=== PATIENT | female | born 1955 | race Caucasian/White ===

== ENCOUNTER 2023-04-01 15:19 | Emergency (ER) | payer MEDICARE, SELFPAY ==
--- NOTE | ~2023-04-01 | CT_ITS ---
EXAMINATION: CT facial & cervical spine wo DATE: 04/01/2023 18:02 INDICATION: Right face injury. Headache. TECHNIQUE: Computed tomography (CT) of the maxillofacial region and cervical spine was performed with out intravenous contrast. Automated exposure control and iterative reconstruction technique were empl oyed. The dose-length product was 141.94 mGy-cm. COMPARISON: None FINDINGS: MAXILLOFACIAL CT: There is a hematoma in right maxillary sinus. There is right cheek soft tissue swelling. There are fr actures of lateral wall of right orbit, anterior and posterolateral leblanc of right maxillary sinus, a nd right orbital floor. There is leftward deviation of the nasal septum. CERVICAL SPINE CT: There is mild scarring at the lung apices. There is kyphosis of cervical spine. There is 7 degrees le vocurvature of cervicothoracic spine. There is 2 mm retrolisthesis of C6 on C7. There is wire fixatio n of the posterior C1 ring and posterior elements of C2-C4. There is mild chronic anterior wedging of T1 vertebral body. There is severely decreased disc height at C5-C6 and C6-C7. The following disc le vels are specifically discussed: C2-C3: There is no uncovertebral joint hypertrophy. There is no facet joint hypertrophy. There is no neural foraminal stenosis. There is no central canal stenosis. C3-C4: There is no uncovertebral joint hypertrophy. There is no facet joint hypertrophy. There is no neural foraminal stenosis. There is no central canal stenosis. C4-C5: There is no uncovertebral joint osteoarthritis. There is no facet joint osteoarthritis. There is no neural foraminal stenosis. There is no central canal stenosis. C5-C6: There is severe bilateral uncovertebral joint osteoarthritis. There is severe right and mild l eft facet joint osteoarthritis. There is mild bilateral neural foraminal stenosis. There is mild cent ral canal stenosis. C6-C7: There is severe bilateral uncovertebral joint osteoarthritis. There is mild bilateral facet taj int osteoarthritis. There is moderate right and mild left neural foraminal stenosis. There is mild ce ntral canal stenosis. C7-T1: There is no uncovertebral joint osteoarthritis. There is severe right and severe facet joint o steoarthritis. There is no neural foraminal stenosis. There is no central canal stenosis. IMPRESSION: 1. Fractures of the right zygomaticomaxillary complex. 2. Posterior fusion procedure from C1 to C4. 3. Severe cervical spondylosis. Reviewed, dictated and finalized at location E.
--- NOTE | ~2023-04-01 | CT_ITS ---
EXAMINATION: CT brain wo con DATE: 04/01/2023 18:01 INDICATION: Headache. Head injury. Fall. TECHNIQUE: Computed tomography (CT) of the head was performed without intravenous contrast. The mA wa s adjusted according to patient size. Iterative reconstruction technique was employed. The dose-lengt h product was 605.33 mGy-cm. COMPARISON: None FINDINGS: There is no intracranial hemorrhage, acute infarction, or abnormal intracranial mass lesion . The ventricles are normal in size. The orbits are normal. The mastoid air cells are normal. There i s hematoma in right maxillary sinus. There is a fracture of the posterolateral wall of right maxillar y sinus. There is a fracture of lateral wall of right orbit. IMPRESSION: 1. Normal brain. 2. Fractures of right zygomaticomaxillary complex. Reviewed, dictated and finalized at location E.
[2023-04-01 15:21] VITALS: BP 130/58; PULSE 56; RESP 18; TEMP 36.6; O2SAT 100
[2023-04-01] MEDS: LIDOCAINE, EPINEPHRINE, TETRACAINE VISCOUS SOLN 3 ML TOPICAL (17:44)
[2023-04-01] MEDS: LIDOCAINE HCL 1% LOCAL INJ 10 ML VIAL 20 ML INFILTRATE (18:51)
--- NOTE | 2023-04-01 19:04 | ED.HEATRA ---
HPI - Head Injury General Chief complaint: Head Injury Stated complaint: head lac, fell Time Seen by Provider: 04/01/23 16:59 History of Present Illness HPI Narrative: This is a 67F who denies significant past medical history who presents to the emergency department after a fall. The patient states she was climbing concrete steps, when she missed a step, falling forward, striking her face on the step. She denies loss of consciousness. She complains of 5/10 right face pain but denies loss of vision, weakness/numbness, chest pain, shortness of breath, nausea or vomiting. She states she also struck her left knee but has only mild dull pain. Related Data Allergies Allergy/AdvReac Type Severity Reaction Status Date / Time Penicillins Allergy Mild Unknown Verified 04/01/23 15:20 Review of Systems Review of Systems: CONSTITUTIONAL: Denies fever, chills, or sweats. EYES: Denies visual changes, redness, or discharge. ENT: Right face pain Denies rhinorrhea, congestion, sore throat, or otalgia. CARDIOVASCULAR: Denies chest pain, palpitations, or edema. RESPIRATORY: Denies cough or dyspnea. GASTROINTESTINAL: Denies abdominal pain, nausea, vomiting, or diarrhea. SKIN: Laceration of the right eyebrow Denies rash or itching. MUSCULOSKELETAL: Left knee pain Denies back pain, or myalgia. NEUROLOGIC: Denies headache, numbness, dizziness, or weakness. PSYCHIATRIC: Denies anxiety or depression. PMFSH Past Medical History Medical History (Updated 04/02/23 @ 22:58 by Keshav Sauceda MD) No significant past medical history Surgical History Surgical History (Updated 04/02/23 @ 22:45 by Keshav Sauceda MD) No significant past surgical history Social History Social History (Updated 04/02/23 @ 22:45 by Keshav Sauceda MD) Smoking status: Never smoker Alcohol intake: never Substance use: never Exam Narrative: GENERAL: Well-developed, well-nourished, and in no acute distress. HEAD: Normocephalic, there is a 2cm laceration just below the right lateral eyebrow. There is no noted exposed muscle or protruding fat. A 1cm diameter area of ecchymosis is noted over the right zygomatic arch EYES: PERRLA and EOMI. ENT: A superficial abrasion is noted over the anterior nasal bridge. Dried epistaxis with no active bleed in the right nare. The left nare is clear, no septal hematoma, no rhinorrhea. Mucous membranes moist. Oropharynx without tonsillar hypertrophy exudate or other lesions. Bilateral TMs pearly christianson nonbulging NECK: Supple. No midline spine tenderness to palpation, no step-off or crepitus. No carotid bruits or JVD CHEST: Clear to auscultation. No respiratory distress. No wheezes rales or rhonchi HEART: Regular rate and rhythm. No murmur heard. Normal peripheral pulses. ABDOMEN: Soft, nontender, nondistended, normal active bowel sounds. EXTREMITIES: Mild tenderness to palpation over the left anterior knee. Normal range of motion. No edema. BACK: No midline spine tenderness to palpation, no step-off or crepitus. SKIN: Warm, dry, no rash. NEURO: Alert and oriented x3. Moving all 4 limbs purposefully. PSYCH: Normal mood and affect. Course Course Emergency Course: 19:30 - CT of the head not concerning for intracranial hemorrhage. CT of the face demonstrates a right tripod fracture. The patient politely declined imaging of the left knee. The patient's laceration was repaired (please see procedure note). The patient's tetanus vaccination was updated. I discussed the patient with [facility] Sales Manager, Dr. Almanzar who recommends no nose blowing, antibiotics, Afrin for nasal congestion and follow up in 1 week. I also discussed the patient with [facility] Plastic Surgeon , Dr. León, who recommends outpatient follow up in 1 week. I discussed these findings and recommendations with the patient. I discussed return and emergency precautions including signs/symptoms of intracranial hemorr
[2023-04-01] MEDS: TETANUS,DIPHTHERIA,AC PERTUSSIS ADULT (0.5 ML) BOOSTRIX IM (19:26)
[2023-04-01 19:50] VITALS: BP 128/70; PULSE 61; RESP 18; O2SAT 99
== END 2023-04-01 19:52 | disposition home or self-care (01) ==
PROVIDERS: Emergency Provider Preventive Medicine Aerospace Medicine
DX: S02.40CA Maxillary fracture, right side, initial encounter for closed fracture (principal); S02.31XA Fracture of orbital floor, right side, initial encounter for closed fracture; S02.841A Fracture of lateral orbital wall, right side, initial encounter for closed fracture; S01.111A Laceration without foreign body of right eyelid and periocular area, initial encounter; Z23 Encounter for immunization; M47.812 Spondylosis without myelopathy or radiculopathy, cervical region; Z98.1 Arthrodesis status; W10.9XXA Fall (on) (from) unspecified stairs and steps, initial encounter
CPT/HCPCS: 12011; 70450; 70486; 72125; 90471; 90715; 99284

== ENCOUNTER 2025-01-22 09:50 | Emergency (ER) | payer MEDICARE, SELFPAY ==
--- NOTE | ~2025-01-22 | XR_ITS ---
XR wrist RT min 3V 01/22/2025 10:38 Indication: Left wrist pain Procedure: 4 views left wrist Comparison: No prior studies for comparison. Findings: There is an age-indeterminate fracture dorsal cortex of the radius distally seen on the obl ique view.. Correlate for point tenderness no other fracture is seen. Impression: 1: Age-indeterminate fracture dorsal cortex of the radius distally seen on oblique and lateral views. Correlate for point tenderness. Reviewed, dictated and finalized at location B. Impression: 1: Age-indeterminate fracture dorsal cortex of the radius distally seen on obli que and lateral views. Correlate for point tenderness.
[2025-01-22 10:03] VITALS: BP 124/85; PULSE 65; RESP 16; TEMP 36.4; O2SAT 100
--- NOTE | 2025-01-22 10:09 | ED.UPPEXIN ---
HPI - Extremity Injury (Upper) General Chief Complaint: Extremity Injury, Upper <Tianna Feliciano APRN - Last Filed: 01/22/25 11:14> Stated Complaint: right arm fracture, needs new splint <Tianna Feliciano APRN - Last Filed: 01/22/25 11:14> Time Seen by Provider: 01/22/25 10:00 <Tianna Feliciano APRN - Last Filed: 01/22/25 11:14> History of Present Illness HPI narrative: Patient is a 69-year-old female who presents to the ER with complaints right wrist pain. She reports she fell backward last week with her arm outstretched. Patient reports she went to [facility] where they diagnosed her with a broken wrist. She reports she called the orthopedic surgeon they advised her to follow-up and they called her back today reporting they do not take her insurance. Patient her OCL cast on. She endorses pain when she puts pressure on the site. Patient endorses a history of ?blindness, and prediabetes. <Tianna Feliciano APRN - Last Filed: 01/22/25 11:14> Related Data Allergies/Adverse Reactions: Allergies Allergy/AdvReac Type Severity Reaction Status Date / Time Penicillins Allergy Mild Unknown Verified 01/22/25 10:20 <Tianna Feliciano APRN - Last Filed: 01/22/25 11:14> Review of Systems Review of Systems: All systems reviewed & are unremarkable except as noted in HPI and below <Tianna Feliciano APRN - Last Filed: 01/22/25 11:14> [facility] Past Medical History Medical History: Medical History No significant past medical history <Tianna Feliciano APRN - Last Filed: 01/22/25 11:14> Surgical History Surgical History: Surgical History No significant past surgical history <Tianna Feliciano APRN - Last Filed: 01/22/25 11:14> Social History Social History: Social History Smoking status: Never smoker Alcohol intake: never Substance use: never <Tianna Feliciano APRN - Last Filed: 01/22/25 11:14> Exam Narrative: GENERAL: Well appearing, well-nourished, non-toxic, in no acute distress. HEAD: Normocephalic, atraumatic. NECK: Supple. No adenopathy, no masses. RESPIRATORY: Airway patent, respirations nonlabored. Clear to auscultation bilaterally, no rales, rhonchi, wheezing. CARDIOVASCULAR: Regular rate and rhythm without murmurs, rubs, or gallops. Peripheral pulses 2+ and equal bilaterally. ABDOMINAL: Soft, nontender, nondistended, no hepatosplenomegaly. Normoactive BS. MUSCULOSKELETAL: Moves all extremities. Strength/ROM intact without gross deformities. Unable to visualize right wrist due to 0CL to site. +CWMS SKIN: Warm, dry, normal color. No rashes. NEURO: A&O X3. Speech clear. Cranial nerves II-XII intact. No ataxic movements. PSYCHIATRIC: Appropriate mood and affect. Normal interaction. <Tianna Feliciano APRN - Last Filed: 01/22/25 11:14> Course LIBRARY SCIENCE PROFESSOR/PA Physician Supervision For this patient encounter, I reviewed the LIBRARY SCIENCE PROFESSOR or PA documentation, treatment plan, and medical decision making; and I had [id number] time with this patient. <Griffin Oro MD - Last Filed: 01/22/25 18:51> Vital Signs Vital signs: Vital Signs Temperature 97.6 F 01/22/25 10:03 Pulse Rate 65 01/22/25 10:03 Respiratory Rate 16 01/22/25 10:03 Blood Pressure 124/85 01/22/25 10:03 Pulse Oximetry 100 01/22/25 10:03 Oxygen Delivery Room Air 01/22/25 10:03 Temperature 97.5 F L 01/22/25 11:58 Pulse Rate 59 L 01/22/25 11:58 Respiratory Rate 16 01/22/25 11:58 Blood Pressure 112/58 L 01/22/25 11:58 Pulse Oximetry 100 01/22/25 11:58 Oxygen Delivery Room Air 01/22/25 10:16 <Tianna Feliciano APRN - Last Filed: 01/22/25 11:14> Vital Signs Temperature 97.6 F 01/22/25 10:03 Pulse Rate 65 01/22/25 10:03 Respiratory Rate 16 01/22/25 10:03 Blood Pressure 124/85 01/22/25 10:03 Pulse Oximetry 100 01/22/25 10:03 Oxygen Delivery Room Air 01/22/25 10:03 Temperature 97.5 F L 01/22/25 11:58 Pulse Rate 59 L 01/22/25 11:58 Respiratory Rate 16 01/22/25 11:58 Blood Pressure 112/58 L 01/22/25 11:58 Pulse Oximetry 100 01/22/25 11:58 Oxygen Delivery Room Air 01/22/25 10:16 <Griffin Oro MD - Last Filed: 01/22/25 18:51> MDM - Extremity Injury (Upper) MDM Narrative Medical decision making narrative: Patient is a 69-year-old female who presents to the ER with complaints right wrist pain. She reports she fell backward last week with her arm outstretched. Patient reports she went to [facility] where they diagnosed her with a broken wrist. She reports she called the orthopedic surgeon they advised her to follow-up and they called her back today reporting they do not take her insurance. Patient her OCL cast on. She endorses pain when she puts pressure on the site. Patient endorses a history of ?blindness, and prediabetes. Labs Ordered: None necessary Imaging Ordered: Right wrist x-ray Medications Ordered: Patient declined Results: Patient's right wrist x-ray indicates : Age-indeterminate fracture dorsal cortex of the radius distally seen on oblique and lateral views. Correlate for point tenderness. Diagnosis: Right wrist fracture Consults: orthopedics, Dr. Boles (outpatient) Patient Education/Shared MDM: Results of imaging shared with patient. She continues to decline the need for pain medication here in the ER. Patient strongly advised to follow-up with Orthopedic surgery as soon as possible. She will be discharged home with a prescription for Hensel and ibuprofen. Strict return precautions provided. Patient verbalized understanding and is in agreement with plan. Vital signs stable at time of discharge. All questions answered. <Tianna Feliciano APRN - Last Filed: 01/22/25 11:14> Differential Diagnosis Differential diagnosis: Likely sprain and strain of wrist, fracture of wrist and Colles' fracture <iTanna Feliciano APRN - Last Filed: 01/22/25 11:14> Imaging Data Attestation: I personally reviewed and interpreted this imaging study as follows: <Tianna Feliciano APRN - Last Filed: 01/22/25 11:14> Radiologist's impression: Impressions Wrist X-Ray 01/22/25 10:44 Impression: 1: Age-indeterminate fracture dorsal cortex of the radius distally seen on oblique and lateral views. Correlate for point tenderness. <Tianna Feliciano APRN - Last Filed: 01/22/25 11:14> Discharge Plan Discharge Clinical Impression: Fracture of wrist, Right wrist pain <Tianna Feliciano APRN - Last Filed: 01/22/25 11:14> Patient Disposition: Home <Tianna Feliciano APRN - Last Filed: 01/22/25 11:14> Condition: Stable <Tianna Feliciano APRN - Last Filed: 01/22/25 11:14> Instructions: Antibiotic Form, Wrist Fracture in Adults (ED) <Tianna Feliciano APRN - Last Filed: 01/22/25 11:14> Additional Instructions: Please return to the ER with any worsening symptoms. Follow-up with Orthopedic surgery as soon as possible. Take all medications as prescribed, including regularly scheduled medications. <Tianna Feliciano APRN - Last Filed: 01/22/25 11:14> Patient Language: Lithuanian <Tianna Feliciano APRN - Last Filed: 01/22/25 11:14> Prescriptions: New ibuprofen 800 mg tablet 800 mg PO TID PRN (Reason: pain) Qty: 60 0RF No Action oxycodone-acetaminophen [Endocet] 5-325 mg tablet 1 tablet PO Q12H PRN (Reason: pain, severe) Qty: 12 0RF cephalexin 500 mg capsule 500 mg PO Q12H Qty: 14 0RF Afrin (oxymetazoline) 0.05 % mist 2 spray intranasal Q12H PRN (Reason: nasal congestion) 3 Days Qty: 15 0RF <Tianna Feliciano APRN - Last Filed: 01/22/25 11:14> Follow-up/Referrals: Cade Boles MD [Physician] - (orthopedic surgery) PHYSICIAN NOT ON STAFF,NONSTAFF [Non-Staff] - <Tianna Feliciano APRN - Last Filed: 01/22/25 11:14> Time of Disposition: 11:11 <Tianna Feliciano APRN - Last Filed: 01/22/25 11:14> 11:11 <Griffin Oro MD - Last Filed: 01/22/25 18:51>
[2025-01-22 10:16] VITALS: BP 96/64; PULSE 62; RESP 16; TEMP 36.4; O2SAT 100
--- OUTSIDE RECORDS SUMMARY | 2025-01-22 10:38 | XMS_ITS | Data Portability ---
Author Organization [employer], [facility] Address [address] [address] Care Team Providers Care Pot Lining Supervisor Name Role Phone SALAS FRANCISCO Crossbar Switch Adjuster Unavailable Assessment No assessment recorded. Plan of Treatment Reminders Order Date Submit Date Provider Last Modified By Organization Details Last Modified Time Details Appointments None record ed. Lab None record ed. Referral None record ed. Procedures None record ed. Surgeries None record ed. Imaging None record ed. Medication Orders None record ed. Patient TargetsNo targets recorded. Patient InstructionsNo instructions recorded. Reason for Referral None Reported. Problems No Known Problems Procedures Surgical History Date Name Laterality Status Provider Name and Address Organization Details Recorded Time Spinal Surgery completed [facility] 02/06/2019 16:33:29 Imaging Results None recorded. Procedure Notes None recorded. Medical Equipment None Reported. Allergies Allergen ID Allergen Name Allergen Category Reaction Reaction Severity Criticality Documentation Date Start Date Code Code System Note Provider Name and Address Organization Details Recorded Time 84447 Product containin g penicilli n (product) medicatio n Not available Not available Not available 02/06/2019 49216 8001 SNOMED [employer] 9 16:31:35 Medications Name Sig Start Date Stop Date Status Note LastModified by Organization Details LastModified Time amitriptyline 10 mg tablet Take 1 tablet every day by oral route at bedtime . 04/06 completed Not Available Not Available Not Available Vitals Date Recorded Body height Body mass index (BMI) Body weight Heart rate Systolic And Diastolic Provider Name and Address Organization Details Last Updated DateTime 07/20/2019 162.56 cm 20.6 kg/m2 11539.08 g 70 /min 124/64 mm[Hg] Nora Campos [facility], [employer] 0 12:20:22 Date Recorded Body height Body mass index (BMI) Body weight Heart rate Systolic And Diastolic Provider Name and Address Organization Details Last Updated DateTime 03/06/2019 162.56 cm 20.6 kg/m2 34295.08 g 66 /min 131/76 mm[Hg] Nora Campos [facility] [employer] 9 16:19:57 Date Recorded Body height Body mass index (BMI) Body weight Heart rate Systolic And Diastolic Provider Name and Address Organization Details Last Updated DateTime 04/06/2019 162.56 cm 20.6 kg/m2 47342.08 g 83 /min 126/74 mm[Hg] Toyin Greer [facility], [employer] 04/06/2019 16:26:21 Date Recorded Body height Body mass index (BMI) Body weight Heart rate Systolic And Diastolic Provider Name and Address Organization Details Last Updated DateTime 05/05/2019 162.56 cm 20.6 kg/m2 43315.08 g 67 /min 121/71 mm[Hg] Nora Campos [facility], [employer] 9 11:38:20 Date Recorded Body height Body mass index (BMI) Body weight Systolic And Diastolic Provider Name and Address Organization Details Last Updated DateTime 06/02/2019 162.56 cm 20.6 kg/m2 62638.08 g 120/81 mm[Hg] Krysten Diaz [facility], [employer] 06/02/2019 13:03:23 Social History Question Answer Notes LastModified by Organizat ion Details LastModified Time Tobacco Smoking Status Never Smoker [facility] [employer] 02/06/2019 16:32:21 Auto Related Injury? No Information not available 02/06/2019 Who Is Your Employer? [employer] Information not available 02/06/2019 Marital Status [email or web address] Informati on not available 02/06/2019 How Many Children Do You Have? 1 Information not available 02/06/2019 What Types Of Sporting Activities Do You Participate In? Walking Dogs Information not available 02/06/2019 Work Related Injury? Yes Information not available 02/06/2019 Sex: Unknown Functional Status Question Answer Note LastModified by Organizat ion Details LastModified Time What is your level of alcohol consumption? None Information not available 02/06/2019 Are you currently employed? 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 [employer] Information not available 02/06/2019 What is your exercise level? Occasional Information not available 02/06/2019 Mental Status None recorded. Family History Relationship Description Onset Age of this Age Resolved Age Notes LastModified by Organization Details LastModified Time Unspecified Relation Rheumatoid arthritis Not available 01/26 16:31:53 Unspecified Relation Hypothyroidi sm Not available 01/26 16:32:01 Medical History Condition Response HIV or AIDS N Coronary Artery Disease N Gout N Kidney Stones N Hyperthyroidism N Hernia N Head Trauma/Injury Y Hypothyroidism Y Lung Disease N Blood Clots N COPD N Depression N Pacemaker N Anxiety Disorder Y Arthritis N Cancer N Stroke N Leg or Foot Ulcers N Neck Injury N High Cholesterol N Liver Disease N Rheumatoid Arthritis N Fibromyalgia N Headaches N Kidney Disease N Heart Problems N Migraines N Thyroid Problems N Anemia N Multiple Sclerosis N Tendon Tear N Ulcers N Heart Attack (AL) N Diabetes N Bleeding Disorder N Seizures/Epilepsy N Tuberculosis N Urinary Tract Infection N Back Problems N Diverticulitis N Asthma N Lupus N Peripheral Vascular Disease N Sleep Disorder N GERD/Reflux N Hepatitis N Aneurysm N Heart Disease N Pulmonary Embolism N Hypertension N Osteoporosis N Gynecological HistoryNo gynecological history recorded. Obstetrics History GPAL:G 0 P 0 0 0 0 Past Encounters Encounter ID Performer Location Encounter Start Date Encounter Closed Date Diagnosis/Indication Diagnosis SNOMED-CT Code Diagnosis ICD10 Code Diagnosis Note [id number] Avinash Sparks DO [facility] [address] [facility] [address] [place] [address] 02/06/2019 14:31:19 02/28/2019 11:49:04 Headache 52571612 R51 Concussion with no loss of consciousness [id number] S06.0X0A I discussed with the patient and I do feel that she did sustain a mild concussion with this injury as well.I believe the headache component as well as the light and noise sensitivit y are related to this and the balance and mild visual impairment .Based on the several go ahead and have her work with outpatient physical therapy on this at this time.Addit ionally also her on amitriptyl ine 10 mg daily at bedtime.If patient has the anxiety symptoms as well as some of the posttrauma tic stress symptoms that are not improving over time I would recommend her to be seen by outpatient psychology as well.[facility] we will hold off on this for now as talking to the patient she does feel that this is improving. 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 Anxiety [id number] F41.9 [id number] Avinash Sparks, DO [facility] [address] [place] [address] 03/06/2019 15:52:29 03/08/2019 09:30:31 Concussion with no loss of consciousness [id number] S06.0X0D I discussed with the patient today and we will go ahead and have her spanish moss picker the medication from the pharmacy and start this at this time.I will continue the physical therapy as she is making improvemen t.Patient' s subjective symptoms are improved but she still feels significan t cognitive change.I will go ahead and order a psychiatri c evaluation to be performed however we may not end up needing this if she makes rapid improvemen t this could be canceled at a later time.I do anticipate her continuing to improve.I will go ahead and have her return to work with no client direct supervisio n.I did fill out a work status stating the above.I did spend over 25 minutes with the patient today with more than 50% of the time in counseling and coordinati on of care regarding the above. [id number] Avinash Sparks DO [facility] [address] [place] [address] 04/06/2019 15:52:30 04/10/2019 10:38:04 Concussion with no loss of consciousness 51193913 S06.0X0D I discussed with the patient and we will continue the physical therapy as long as she is making goals.I will also have her no longer taking any additional medication s.We will continue her current work restrictio ns for now but I do anticipate that as she continues to improve we will be able to return her to her regular work duties and I anticipate that occurring by the time I see her next.I did fill out a work status with the current restrictio ns today.I will see her in approximat basia 4 weeks to reevaluate . Headache [id number] R51 [id number] Avinash Sparks, DO [facility] [address] [facility] [place] [address] 05/05/2019 11:25:29 05/10/2019 11:44:28 Concussion with no loss of consciousness [id number] S06.0X0D I discussed with the patient and we will go ahead and have her return to regular work duties.I will not make any additional changes at this time.If she is doing well in one month we will be placing her at [facility].If she has additional questions or concerns she is encouraged to contact me. [id number] Avinash Sparks, DO [facility] [address] [place] [address] 06/02/2019 12:51:45 06/05/2019 11:14:20 Concussion with no loss of consciousness [id number] S06.0X0D I discussed with the patient and we will not make any major changes at this time.I will not add back any medicine and we will not add any therapy at this time.It does sound as though all of her symptoms have improved significan tly and as she is getting back to full work duties this has slightly exacerbate d her symptoms but she is improving as she does more of this.She is in agreement with this plan and therefore we will continue her regular work duties and I did fill out a work status today.We will plan to see her back in approximat basia 6 weeks at which time I anticipate her being placed at [facility].She will contact me if she has any additional problems or concerns in the interim. [id number] Avinash Sparks, DO [facility] [address] [place] [address] 07/20/2019 12:05:28 07/26/2019 10:18:51 Concussion with no loss of consciousness [id number] S06.0X0D I discussed with the patient today and at this point we will go ahead and release her for full work duties at [facility] t.Patient expresses understand ing of this.I do not anticipate additional treatment being necessary for this patient at this time. Health Concerns Section Related Observation LastModified by Organization Detai ls LastModified Time None Recorded Concern Status LastModified by Organization Details LastModified Time None Recorded Advance Directives Directive None Recorded Payers Insurance Date Sequence Insurance Name Policy Number Policy Gaffney Covered Member ID Gaffney Member ID Guarantor Name 07/13/2019 1 *SELF PAY* [facility] [place] 01/25/2019 KRAUSE PREMIER [facility] [place] [facility] Episode No OBEpisode recorded.
--- OUTSIDE RECORDS SUMMARY | 2025-01-22 10:38 | XMS_ITS | Clinical Summary ---
Author Organization [facility] Address [address] [facility] [address] [place] [address] Care Team Providers Care Pedal Assembler Name Role Phone Unavailable Primary Care Provider Unavailabl e Source Comments [facility],non-owned Affiliates and Associated Physician Practices is amultiple site organization consisting of ambulatory clinics and hospital sitesin [place], [place], [place] and [place]. This disclosure is being madepursuant to the Care Everywhere program and may not contain all information available regarding this patient. Last updated 18.[facility] [employer] Social History Tobacco Use Types Packs/Day Years Used Date Smoking Tobacco: Never Assessed Comments Unknown Sex and Gender Information Value Date Recorded Sex Assigned at Not on file Legal Sex Female 6:30 AM [employer] Gender Identity Not on file Sexual Orientation Not on file Plan of Treatment Health Maintenance Due Date Last Done Comments BONE DENSITY TESTING 1955 COLOGUARD (AGES 45-75) - COL ON CA SCREENING 1955 COLON MONITORING 1953 COLONOSCOPY - COLON CA SCREENING 1953 CT COLONOGRAPHY - COLON CA SCREENING 1955 Colorectal Cancer Screening 1955 FIT - COLON CA SCREENING 1953 FLEX SIG - COLON CA SCREENING 1953 LIPID TESTING 1953 MAMMOGRAM 1953 HEPATITIS C SCREENING 12/07/1971 DTAP/TDAP/TD VACCINES (1 - Tdap) 1972 PNEUMOCOCCAL VACCINE 50+ (1 of 1 - PCV) 12/12/2003 ZOSTER VACCINE (1 of 2) 12/12/2003 COVID-19 VACCINE ( - 2023-2 5 season) 2024 DEPRESSION SCREENING 06/28/2024 INFLUENZA VACCINE (#1) 2025 Respiratory Syncytial Virus (RSV) Vaccine Pt: or over 60 yrs (1 - 1-dose 75+ series) 2028 HEPATITIS B VACCINE Aged Out No longe r eligible based on patient's age to complete this topic HIB VACCINE Aged Out No longer eligi ble based on patient's age to complete this topic HPV VACCINE Aged Out No longer eligi ble based on patient's age to complete this topic MENINGOCOCCAL (Group B) VACC INE SHARED DECISION-MAKING Aged Out No longer eligibl e based on patient's age to complete this topic MENINGOCOCCAL GROUPS A/C/Y/W VACCINE Aged Out No longer eligible b ased on patient's age to complete this topic
--- OUTSIDE RECORDS SUMMARY | 2025-01-22 10:39 | XMS_ITS | Data Portability ---
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 [address], [place], [address], [facility] [employer] [facility] [employer] [facility] 01/11/2024 15:08:43 Influenza, high-dose, trivalent, PF 4 completed Sandee Hickman APRN [address], [place], [address], [facility] [employer] [facility] [employer] [facility] 04/13/2024 11:49:27 Past Encounters Encounter ID Performer Location Encounter Start Date Encounter Closed Date Diagnosis/Indication Diagnosis SNOMED-CT Code Diagnosis ICD10 Code Diagnosis Note [id number] Gabi hernandez MD [facility] [place] [facility] [address] [place] [address] 01/11/2024 14:38:50 01/11/2024 15:33:31 Screening for disorder 377859715 Z13.9 Hyperlipidemia 79430621 E78.5 Vitamin D deficiency 347 30438 E55.9 Essential hypertension 41343305 I10 Screening mammography 24 071185 Z12.31 Screening for osteoporosis 453590311 Z13.885 [id number] Gabi hernandez MD [facility] [place] [facility] [address] [place] [address] 04/13/2024 11:00:05 04/13/2024 11:50:42 Adult health examination 765120295 Z00.00 Screening for disorder 191660769 Z13.9 Screening for malignant neoplasm of colon 203233646 Z12.11 Screening mammography 24 939246 Z12.31 Screening for osteoporosis 358771815 Z13.820 Z78.0 Administra tion of influenza vaccine 64485605 Z23 Advance care planning 71 5928429 Z71.89 Discussed advanced care planning due to age. [id number] Gabi hernandez MD [facility] [address] [address] 10/24/2024 09:40:52 10/24/2024 10:22:09 Screening - NAD 475935077 Z13.9 C-scope: Cologuard: Neg 05/21/2024 Mammogram: Get this if not done DEXA: Get this WWE: Do this if not done Get yearly flu shot, get tdap if not doneCan do shingrix vaccineCan do COVID 19 boosterCan do Prevnar #20 and RSV vaccine RTC in 6 months as per her wishes, advised to be compliant with taking her medication s, do labs, ER if worse, she did verbalize her understand ing of the above Hyperlipidemia 22466352 E78.5 On atorvastat in 10mg dailyGet labs Essential hypertension 20520794 I10 Not on any medication sGet labs Vitamin D deficiency 347 07695 E55.9 Serum eliza min B12 below reference range 744480200 R79.89 Hypothyroidism 52160552 E03.9 On levothyrox ine 50mcgs dailyGet US thyroid Postmenopausal state 764 94919 Z78.0 Bilateral cataracts 9572 2003 H26.9 Is to get surgeryNot yet arranged, sees Song visionNeed s to do labs Screening mammography 24 458332 Z12.31 Gynecologi c examination 40253368 Z01.419 Health Concerns Section Related Observation LastModified by Organization Detai ls LastModified Time None Recorded Concern Status LastModified by Organization Details LastModified Time None Recorded Advance Directives Directive N: Payers Insurance Date Sequence Insurance Name Policy Number Policy Gaffney Covered Member ID Gaffney Member ID Guarantor Name 10/24/2024 1 [employer] - PRIME (MEDICARE REPLACEMENT/ ADVANTAGE - HMO) [id number] Izabela Bell [id number] Izabela Bell OBGyn Episode No OBEpisode recorded.
[2025-01-22 11:58] VITALS: BP 112/58; PULSE 59; RESP 16; TEMP 36.4; O2SAT 100
== END 2025-01-22 12:03 | disposition home or self-care (01) ==
PROVIDERS: Emergency Provider Registered Nurse; PCP Internal Medicine
DX: S52.501A Unspecified fracture of the lower end of right radius, initial encounter for closed fracture (principal); W01.0XXA Fall on same level from slipping, tripping and stumbling without subsequent striking against object, initial encounter
CPT/HCPCS: 29125; 73110; 99284